=== PATIENT | male | born 1955 | race Caucasian/White ===

== ENCOUNTER 2022-04-07 13:29 | Outpatient (CLI) | payer MEDICARE ==
[~2022-04-07 13:29] MED LIST: Magnevist 469MG/ML 20 ML VIAL ONE
== END 2022-04-07 13:30 | disposition home or self-care (01) ==
LOC: CSHMRI 13:29
PROVIDERS: ATTEND Radiology Radiation Oncology
DX: C79.31 Secondary malignant neoplasm of brain (principal); G93.6 Cerebral edema; G93.5 Compression of brain; Z98.890 Other specified postprocedural states
CPT/HCPCS: 70553; A9579

== ENCOUNTER 2022-10-18 12:32 | Outpatient (CLI) | payer MEDICARE | END 2022-10-18 12:33 | disposition home or self-care (01) | LOC: CSHMRI 12:32 | PROVIDERS: ATTEND Radiology Radiation Oncology | DX: C79.31 Secondary malignant neoplasm of brain (principal); C34.31 Malignant neoplasm of lower lobe, right bronchus or lung | CPT/HCPCS: 70553; 94010; 94726; 94729; 94760; A9579 ==